=== PATIENT | female | born 1960 | race Asian ===

== ENCOUNTER 2017-01-12 06:07 | Day surgery (SDC) | payer OTHER ==
[~2017-01-12] VITALS: Ht 149.9 cm; Wt 52.0 kg
[2017-01-12] MEDS ORDERED: LEVO137T3 PO (06:36)
[2017-01-12] MEDS ORDERED: OMEP40CA6 PO (06:36)
[2017-01-12 06:38] VITALS: Ht 149.9 cm; Wt 52.0 kg
[2017-01-12 07:22] VITALS: BP 127/86; PULSE 52; RESP 12
[2017-01-12] MEDS ORDERED: MIDAZOLAM 1 MG/ML 2 ML INJ ONE ×2 (07:39)
[2017-01-12] MEDS ORDERED: FENTAnyl 50 MCG/ML VIAL ONE (07:39)
[2017-01-12 08:00] VITALS: BP 120/66; PULSE 63; RESP 18
--- NOTE | 2017-01-12 08:08 | GILP ---
DATE OF PROCEDURE: NAME OF PROCEDURES: Esophagogastroduodenoscopy and biopsy. SURGEON: Jeffrey Escobedo MD PREOPERATIVE DIAGNOSES: 1. Abdominal pain. 2. Chronic heartburn. POSTOPERATIVE DIAGNOSES: 1. Hiatal hernia. 2. Gastroesophageal reflux disease. 3. Gastritis with erosions. 4. Gastric mucosal biopsies were taken for Helicobacter pylori test. INDICATION FOR THE PROCEDURE: Ms. Asiya Braden is a 56-year-old female patient who had upper a bdominal pain and chronic heartburn, not responding to therapy. The patient was scheduled for endos copic examination for further evaluation. The procedure and possible complications were well explained to the patient. The patient understood and consented to the procedure. DESCRIPTION OF PROCEDURE: Under the influence of fentanyl and Versed, the gastroscope was carefully introduced into the esophagus, and under direct vision, it was advanced to the stomach and through the pylorus into the duodenal bulb and descending duodenum. FINDINGS: ESOPHAGUS: The patient had hiatal hernia and gastroesophageal reflux disease. STOMACH: She had gastritis with erosions. Gastric mucosal biopsies were taken for H. pylori test. DUODENUM: Normal. She tolerated the procedure very well, and there was no complication from the procedure. At the end of the procedure, she was awake with stable vital signs and she was discharged home to the care of her family. IMPRESSION: 1. Hiatal hernia. 2. Gastroesophageal reflux disease. 3. Gastritis with erosions. 4. Gastric mucosal biopsies were taken for Helicobacter pylori test. PLAN: 1. Omeprazole 40 mg p.o. q. a.m. 2. Await H. pylori test report. Dictated By: JEFFREY ALEX/SPRING Conf#: [id number] DID#: [id number]
== END 2017-01-12 10:52 | disposition home or self-care (01) ==
LOC: GIL 06:07
PROVIDERS: ATTEND Internal Medicine Gastroenterology
DX: K44.9 Diaphragmatic hernia without obstruction or gangrene (principal); K21.9 Gastro-esophageal reflux disease without esophagitis; K29.60 Other gastritis without bleeding
CPT/HCPCS: 43239; 87081; J2250; J3010